=== PATIENT | male | born 1985 | race Caucasian/White ===

== ENCOUNTER 2020-01-25 09:50 | Emergency (ER) | payer MEDICAID ==
[~2020-01-25] VITALS: Ht 172.7 cm; Wt 67.0 kg
[2020-01-25 09:56] VITALS: BP 133/90
--- NOTE | 2020-01-25 10:22 | NUR ---
pt lft the er while er provider radha was talking to patient ,radha daniel asked they pt whether he use meth,pt got mad and left without tx and discharge paperwork.
== END 2020-01-25 10:24 | disposition left against medical advice (07) ==
LOC: ER 09:50
DX: B35.3 Tinea pedis (principal); F15.90 Other stimulant use, unspecified, uncomplicated; Z59.0 Homelessness; Z56.0 Unemployment, unspecified; Z88.2 Allergy status to sulfonamides
CPT/HCPCS: 99281